=== PATIENT | male | born 1935 | race Caucasian/White ===

== ENCOUNTER → 2016-09-24 | Outpatient (CLI) | payer OTHER ==
[~2016-09-24] MED LIST: AMLODIPINE BES2.5 MG PO; ANTIVERT/2525 M1 PO; ANTIVERT25 MG PO; CARAFATE1 G1 PO; FISH OIL 10001000 MG PO; KEY-E400 IU PO; LOVASTATIN10 MG PO; LOVASTATIN20 MG PO; NORCO 10-325 T1 EACH PO; NORTRIPTYLINE H10 M1 PO; PERCOCET 325 MG1 TA5 PO; SUDAFED 24 HOU240 MG PO; TOPROL XL25 MG PO; VITAMIN D31000 IU PO; VITAMIN D32000 IU PO; ZITHROMAX Z PA250 MG PO; ZYRTEC10 M1 PO; ZYRTEC10 MG PO
== END | disposition home or self-care (01) ==
LOC: US 09:40
DX: Z01.818 Encounter for other preprocedural examination (principal); M79.89 Other specified soft tissue disorders; Z96.642 Presence of left artificial hip joint

== ENCOUNTER → 2017-02-11 | Outpatient (CLI) | payer OTHER | END | disposition home or self-care (01) | LOC: LAB 08:07 → CT 09:00 | PROVIDERS: Radiology Diagnostic Radiology | DX: I67.82 Cerebral ischemia (principal); R41.0 Disorientation, unspecified ==

== ENCOUNTER → 2017-10-28 | Outpatient (CLI) | payer MEDICARE | END | disposition home or self-care (01) | LOC: US 15:23 | DX: R60.0 Localized edema (principal) ==

== ENCOUNTER 2018-11-04 00:39 | Inpatient (IN) | payer MEDICARE ==
[2018-11-04] VITALS (7 sets, daily range): BP systolic 114–145; BP diastolic 68–93
[~2018-11-04] VITALS: Ht 187.9 cm; Wt 105.0 kg
--- NOTE | ~2018-11-04 | EKG ---
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
--- NOTE | ~2018-11-04 | EKG ---
[place], [place] ELECTROCARDIOGRAM REPORT NAME: LYNDA ENGLAND UNIT #: [id number] ROOM: 507 DOCTOR: TAWANA DRAFT REPORT BIRTHDATE: [birth year] [facility] Test Date: 2018-11-04 Test Time: 06:51:19 Pat Name: LYNDA ENGLAND Department: Room: 507 Gender: M [place]: : 1935 Requested By: MIGUEL ANGEL PADILLA Order Number: [id number] Reading MD: Tin Hanna MD Measurements Intervals [place] Rate: 67 P: -8 WV: 255 QRS: -22 QRSD: 92 T: 17 QT: 390 QTc: 412 Interpretive Statements Sinus rhythm Prolonged [place] interval Abnormal R-wave progression, early transition Inferior infarct, old Electronically Signed On 11-04-2018 15:05:56 PDT by Tin Hanna MD CM:EKGRPT:ELECTROCARDIOGRAM REPORT [id number] MIGUEL ANGEL VILLAREAL DRAFT REPORT MIGUEL ANGEL PADILLA DO
--- NOTE | ~2018-11-04 | DS ---
[place], [place] DISCHARGE SUMMARY NAME: LYNDA ENGLAND [facility] #: [id number] UNIT #: [id number] ROOM: 505 DOCTOR: ADRIÁN DIAZ MD BIRTHDATE: [birth year] DOS: 11/06/2018 The patient is very well known to us. He was admitted to the hospital on 11/04/2018, discharged on 11/06/2018. DIAGNOSES: 1. Severe aortic stenosis. 2. Chest pain from aortic stenosis. 3. Benign hypertension. 4. History of hip fracture, status post fall with open reduction and internal fixation. HOSPITAL COURSE: The patient is 83 years old, comes in with complaints of chest pain. The patient states that the pain also comes on when he cuts his lawn. He denies having any fever, chills, any abdominal pain, nausea, emesis, any shortness of breath. He was admitted with diagnosis of acute precordial chest pain. Cardiology consultation was obtained. Rule out VT protocol was ordered. Echocardiogram was done. Echocardiogram showed severe aortic stenosis. Dr. Hanna felt that the patient would benefit from cardiac catheterization to see if he has underlying coronary artery disease and also the extent of aortic stenosis. The patient was transferred to [facility] for further workup. ADRIÁN DIAZ MD CM:DISCHARG [id number] ADRIÁN DIAZ MD 11/29/18 0920 interface
--- NOTE | ~2018-11-04 | WRIGHTHP ---
[place], [place] PATIENT HISTORY AND PHYSICAL EXAM NAME: LYNDA ENGLAND [facility] #: [id number] UNIT #: [id number] ROOM: 507 DOCTOR: ADRIÁN DIAZ MD BIRTHDATE: [birth year] DOS: 11/04/2018 HISTORY OF PRESENT ILLNESS: The patient is 83 years old, very well known to us, who comes in with chest pain. The patient states that he ate a lot of greasy fries yesterday, had some diarrhea, so went to bed early. He was woken up in the middle of the night with severe chest pain, radiating to the left shoulder. As soon as he sat up, the pain resolved. He denies having any chest pains after that. He decided to come into the Emergency Room because it scared him. Denies having any shortness of breath, any palpitations, any fever or chills. He has noticed some chest tightness whenever he cuts his lawn recently. It always goes away when he rests. PAST MEDICAL HISTORY: Significant for; 1. Mild aortic stenosis. 2. History of cholecystectomy. 3. Benign hypertension. 4. History of fall with fracture of the hip and status post ORIF. 5. Hiatal hernia. MEDICATIONS: That he is currently on are vitamin D 1000 units daily, lovastatin 20 daily, metoprolol 25 daily, vitamin E 400 units daily. SOCIAL HISTORY: Nonsmoker, does not use any alcohol. Lives at home. 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 PHYSICAL EXAMINATION: GENERAL: He is awake and alert and oriented. VITAL SIGNS: Blood pressure is 145/88, pulse of 80, respirations 20, temperature 97.5. LUNGS: Diminished breath sounds. No wheezes, rales or rhonchi heard. HEART: Regular. ABDOMEN: Obese, soft, nontender. EXTREMITIES: Without any edema. ASSESSMENT AND PLAN: 1. Acute precordial pain. The patient has been admitted, rule out myocardial infarction protocol was done. Consultation with Cardiology obtained. Echocardiogram ordered. 2. Hyponatremia and hypochloremia, possibly from volume contraction. Advised to increase the fluids. 3. Benign hypertension, controlled. 4. Chest pain could be atypical from gastroesophageal reflux disease, especially with his intake of a lot of greasy fries yesterday, but the patient is not having any symptoms, so I have not placed him on any proton pump inhibitors. 5. Recent complaints of exertional chest pain, may require a stress test. His last one was 2 years ago. He does have mild to moderate aortic stenosis on his last echocardiogram as an outpatient. [place], [place] PATIENT HISTORY AND PHYSICAL EXAM NAME: LYNDA ENGLAND UNIT #: [id number] ROOM: [facility] DOCTOR: ADRIÁN DIAZ MD BIRTHDATE: [birth year] ADRIÁN DIAZ MD CM:HISPHYS:PATIENT HISTORY AND PHYSICAL EXAMINATION ADRIÁN DIAZ MD 11/04/18 0859 interface
--- NOTE | ~2018-11-04 | PR ---
[place], [place] PROGRESS NOTE NAME: LYNDA ENGLAND [facility] #: [id number] UNIT #: [id number] ROOM: 505 DOCTOR: ADRIÁN DIAZ MD BIRTHDATE: [birth year] DOS: SUBJECTIVE: The patient is doing well without any complaints. OBJECTIVE: VITAL SIGNS: Graphic trend shows a pressure of 116/74, pulse of 86, respirations 18, temperature 97.9. LUNGS: Clear. HEART: Regular with a loud systolic murmur heard in the second space. ABDOMEN: Obese, soft. EXTREMITIES: Without any edema. ASSESSMENT AND PLAN: 1. Chest pain, ruled out for myocardial infarction. 2. Aortic stenosis. Discussed with Dr. Hanna this morning. The patient's echo this morning shows severe aortic stenosis and he would benefit from a cardiac catheterization, and arrangements for transfer are being made. ADRIÁN DIAZ MD CM:PNTRANS [id number] ADRIÁN DIAZ MD 11/06/18 1319 interface
--- NOTE | ~2018-11-04 | EKG ---
[place], [place] ELECTROCARDIOGRAM REPORT NAME: LYNDA ENGLAND UNIT #: [id number] ROOM: 507 DOCTOR: TAWANA DRAFT REPORT BIRTHDATE: [birth year] [facility] Test Date: 2018-11-04 Test Time: 00:46:05 Pat Name: LYNDA ENGLAND Department: Room: 507 Gender: M Mat Gauger: : 1935 Requested By: MIGUEL ANGEL PADILLA Order Number: [id number] Reading MD: Tin Hanna MD Measurements Intervals [place] Rate: 90 P: 34 RI: 233 QRS: -12 QRSD: 104 T: 41 QT: 354 QTc: 433 Interpretive Statements Sinus rhythm Prolonged [place] interval Abnormal R-wave progression, early transition Electronically Signed On 11-04-2018 15:05:30 PDT by Tin Hanna MD CM:EKGRPT:ELECTROCARDIOGRAM REPORT [id number] MIGUEL ANGEL VILLAREAL DRAFT REPORT MIGUEL ANGEL PADILLA DO
--- NOTE | ~2018-11-04 | PR ---
[place], [place] PROGRESS NOTE [id number] UNIT #: [id number] ROOM: 505 DOCTOR: ADRIÁN DIAZ MD BIRTHDATE: [birth year] DOS: SUBJECTIVE: The patient states that he feels good and he is not having any chest pains. Appreciate Dr. Valdez's input. OBJECTIVE: VITAL SIGNS: Pressure is 129/55, pulse of 66, respirations 20, temperature 97.5. LUNGS: Clear. HEART: Regular. ABDOMEN: Obese, soft. EXTREMITIES: Without any edema. EKG showed sinus rhythm, nonspecific ST-T wave changes. Four sets of troponins have all come back negative. ASSESSMENT AND PLAN: 1. Precordial chest pain. Awaiting further workup ruled out for myocardial infarction. 2. Aortic stenosis, mild to moderate. Echocardiogram ordered for tomorrow. Dr. Valdez is following deciding on whether he would benefit from catheterization versus stress test. ADRIÁN DIAZ MD CM:PNTRANS [id number] ADRIÁN DIAZ MD 11/06/18 0032 interface
[2018-11-04 01:20] LABS: BASO # 0.1 10*3/uL (0.0-0.1); BASO % 1.4 % (0.0-1.0); EOS # 0.8 10*3/uL (0.0-0.4); EOS % 9.4 % (1.0-4.0); HEMATOCRIT 42.9 % (42.0-52.0); HEMOGLOBIN 14.2 g/dl (14.0-18.0); LYMPH # 2.1 10*3/uL (1.3-4.4); LYMPH % 24.4 % (27.0-41.0); MEAN CELL VOLUME 91.3 fl (80.0-94.0); MEAN CORPUSCULAR HGB 30.2 pg (27.0-31.0); MEAN CORPUSCULAR HGB CONC 33.1 g/dl (33.0-37.0); MEAN PLATELET VOLUME 10.6 fl (9.6-12.3); MONO # 0.8 10*3/uL (0.1-1.0); MONO % 9.8 % (3.0-9.0); NEUT # 4.7 10*3/uL (2.3-7.9); NEUT % 54.5 % (47.0-73.0); PLATELET COUNT AUTOMATED 245 10*3/uL (130-400); RED CELL DISTRI WIDTH 12.6 % (0-14.5); WHITE BLOOD COUNT 8.6 10*3/uL (4.8-10.8)
[2018-11-04 01:39] LABS: ACT PARTIAL THROMBO TIME 26.4 SECONDS (20.0-32.1); INTERNATIONAL NORM RATIO 0.9 (2.0-3.5)
[2018-11-04 01:40] LABS: ALBUMIN 3.9 gm/dl (3.1-4.5); ALKALINE PHOSPHATASE 107 U/L (45-117); BUN 24 mg/dl (7-24); CHLORIDE 112 mmol/L (98-107); CREATININE 0.88 mg/dL (0.70-1.30); POTASSIUM 4.1 mmol/L (3.5-5.1); SGOT/AST 15 IU/L (3-35); SGPT/ALT 25 U/L (12-78); SODIUM 146 mmol/L (136-145); TOTAL PROTEIN 7.4 gm/dL (6.4-8.2)
[2018-11-04 01:43] LABS: TROPONIN I < 0.015 ng/ml (<0.045)
--- NOTE | 2018-11-04 02:37 | NUR ---
PT AND REQUEST PASSWORD OF "DONALD".
--- NOTE | 2018-11-04 03:20 | NUR ---
A 83, admitted to , under the services of ADRIÁN Clifton MD with a diagnosis of ANGINA. Chief complaint is CHEST PAIN. Patient arrived via stretcher from ER. Monitor applied. Initial assessment completed. Vital signs taken and recorded. ADRIÁN CLIFTON MD notified of admission to the unit. Orders received. See assessment for past medical history, medications and allergies. Patient and/or family oriented to unit. [facility] visitation policy reviewed. Clothing/patient valuable form completed. PAM PATEL
--- NOTE | 2018-11-04 06:23 | NUR ---
SPOKE WITH COSME AT [facility] ANSWERING SERVICE REGARDING CONSULT FOR DR. IBARRA
[2018-11-05] VITALS: BP 129/55
[2018-11-05 08:00] VITALS: BP 126/78
[2018-11-05] MEDS ORDERED: AMLODIPINE BES2.5 MG PO (09:35)
[2018-11-05] MEDS ORDERED: FLOMAX0.4 MG PO (09:36)
[2018-11-05] MEDS ORDERED: ASPIRIN ADULT L81 M1 PO (09:36)
[2018-11-05] MEDS ORDERED: SENTRY SENIOR1 EAC2 PO (09:36)
[2018-11-05] MEDS ORDERED: B12,B-12,B 12500 MC1 PO (10:46)
[2018-11-05 12:00] VITALS: BP 128/80
[2018-11-05 16:00] VITALS: BP 147/87
[2018-11-05 20:00] VITALS: BP 126/79
[2018-11-06] VITALS: BP 116/74
--- NOTE | 2018-11-06 08:00 | NUR ---
PT SEEN AT THIS TIME. PT IS AWAKE AND ALERT, SITTING IN BED. NO S/S OF DISTRES OR SOB AT THIS TIME. BED IN LOWEST LOCKED POSITION AND CALL LIGHT WITHIN REACH. WILL CONTINUE TO MONITOR.
--- NOTE | 2018-11-06 09:00 | NUR ---
Spray Painter in to talk to patient. Patient states lives at home with his . There are 10 steps in the home. Physician: Dr. Altagracia Escobar Pharmacy: [facility] Home health services: none Patient's level of ADLs: INDEPENDENT Patient has working utilities: yes DME: none Follow-up physician's appointment after d/c: he prefers to make his own follow up appt after discharge Does patient want to access PORTAL?: no Discharge plan discussed with patient and family who are at the bedside. Patient is SAMISH. He lives at home with his . He is independent in his ADLs and ambulation. Discussed home health care services and he denies any home needs. He states he had his echo done and is waiting to hear back from the doctor to see if they are going to transfer him to [facility]. DEANDRE ARRIOLA
[2018-11-06 12:00] VITALS: BP 105/70
[2018-11-06 16:00] VITALS: BP 103/64
--- NOTE | 2018-11-06 18:07 | NUR ---
Discharge instructions reviewed with patient/family. Patient receptive and verbalizes understanding. Follow-up care arranged. Written instructions given to patient/family. PT LEFT FLOOR WITH MOOSE. JOSE E HARDY
== END 2018-11-06 18:07 | disposition short-term general hospital (02) | DRG 392 ==
LOC: ED 00:39 → EDHOLD 02:28 → 5E 02:28
PROVIDERS: Student in an Organized Health Care Education/Training Program; ADMIT Internal Medicine
DX: K21.9 Gastro-esophageal reflux disease without esophagitis (principal); E87.1 Hypo-osmolality and hyponatremia; R07.2 Precordial pain; E87.8 Other disorders of electrolyte and fluid balance, not elsewhere classified; E78.5 Hyperlipidemia, unspecified; I10 Essential (primary) hypertension; I35.0 Nonrheumatic aortic (valve) stenosis; Z90.49 Acquired absence of other specified parts of digestive tract; Z91.81 History of falling; Z79.899 Other long term (current) drug therapy

== ENCOUNTER → 2020-01-04 | Outpatient (CLI) | payer OTHER ==
[~2020-01-04] MED LIST changes: +ASPIRIN ADULT L81 M1 PO; +B12,B-12,B 12500 MC1 PO; +FLOMAX0.4 MG PO; +SENTRY SENIOR1 EAC2 PO
[2020-01-04 09:15] LABS: BASO # 0.1 10*3/uL (0.0-0.1); BASO % 1.4 % (0.0-1.0); EOS # 0.9 10*3/uL (0.0-0.4); EOS % 10.7 % (1.0-4.0); HEMATOCRIT 48.1 % (42.0-52.0); LYMPH # 1.6 10*3/uL (1.3-4.4); LYMPH % 19.2 % (27.0-41.0); MEAN CELL VOLUME 86.5 fl (80.0-94.0); MEAN CORPUSCULAR HGB 27.9 pg (27.0-31.0); MEAN CORPUSCULAR HGB CONC 32.2 g/dl (33.0-37.0); MEAN PLATELET VOLUME 10.1 fl (9.6-12.3); MONO # 0.7 10*3/uL (0.1-1.0); NEUT # 5.1 10*3/uL (2.3-7.9); NEUT % 60.3 % (47.0-73.0); PLATELET COUNT AUTOMATED 181 10*3/uL (130-400); RED BLOOD COUNT 5.56 10*6/uL (4.50-5.90); RED CELL DISTRI WIDTH 12.9 % (0-14.5); WHITE BLOOD COUNT 8.5 10*3/uL (4.8-10.8)
[2020-01-04 09:45] LABS: ALBUMIN 4.1 gm/dl (3.1-4.5); ALKALINE PHOSPHATASE 109 U/L (45-117); BUN 17 mg/dl (7-24); CHLORIDE 107 mmol/L (98-107); CHOLESTEROL 184 mg/dL (<200); CREATININE 1.04 mg/dL (0.70-1.30); FREE T4 0.96 ng/dl (0.76-1.46); HDL CHOLESTEROL 45 mg/dl (40-60); LDL CHOLESTEROL 102 mg/dL (9-159); POTASSIUM 4.2 mmol/L (3.5-5.1); SGOT/AST 17 IU/L (3-35); SGPT/ALT 24 U/L (12-78); SODIUM 140 mmol/L (136-145); TOTAL PROTEIN 8.3 gm/dL (6.4-8.2); TRIGLYCERIDES 184 mg/dl (<150); VLDL CHOLESTEROL 37 mg/dL (6-40)
[2020-01-04 10:50] LABS: VITAMIN D, 25-HYDROXY 45.9 ng/mL (30-100)
== END | disposition home or self-care (01) ==
LOC: LAB 08:49 → US 13:30
PROVIDERS: Internal Medicine
DX: Z12.5 Encounter for screening for malignant neoplasm of prostate (principal); I10 Essential (primary) hypertension; J01.00 Acute maxillary sinusitis, unspecified; I35.0 Nonrheumatic aortic (valve) stenosis; R79.82 Elevated C-reactive protein (CRP); R74.8 Abnormal levels of other serum enzymes; R79.89 Other specified abnormal findings of blood chemistry; R53.81 Other malaise; E55.9 Vitamin D deficiency, unspecified; R42 Dizziness and giddiness

== ENCOUNTER 2020-02-18 11:32 | Observation (INO) | payer OTHER ==
[~2020-02-18] VITALS: Ht 187.9 cm; Wt 99.8 kg
[2020-02-18 11:49] VITALS: BP 127/73
[2020-02-18 12:22] LABS: BASO % 0.6 % (0.0-1.0); EOS # 0.3 10*3/uL (0.0-0.4); EOS % 6.8 % (1.0-4.0); HEMATOCRIT 45.1 % (42.0-52.0); LYMPH % 21.2 % (27.0-41.0); MEAN CELL VOLUME 84.3 fl (80.0-94.0); MEAN CORPUSCULAR HGB 26.9 pg (27.0-31.0); MEAN CORPUSCULAR HGB CONC 31.9 g/dl (33.0-37.0); MEAN PLATELET VOLUME 11.1 fl (9.6-12.3); MONO # 0.7 10*3/uL (0.1-1.0); MONO % 13.6 % (3.0-9.0); NEUT # 2.8 10*3/uL (2.3-7.9); NEUT % 57.4 % (47.0-73.0); PLATELET COUNT AUTOMATED 226 10*3/uL (130-400); RED BLOOD COUNT 5.35 10*6/uL (4.50-5.90); RED CELL DISTRI WIDTH 12.6 % (0-14.5); WHITE BLOOD COUNT 4.9 10*3/uL (4.8-10.8)
[2020-02-18 12:30] LABS: ACT PARTIAL THROMBO TIME 30.2 SECONDS (20.0-32.1)
[2020-02-18 12:38] LABS: ALBUMIN 3.6 gm/dl (3.1-4.5); ALKALINE PHOSPHATASE 123 U/L (45-117); BUN 18 mg/dl (7-24); CHLORIDE 107 mmol/L (98-107); CREATININE 1.03 mg/dL (0.70-1.30); LIPASE 142 U/L (73-393); POTASSIUM 3.9 mmol/L (3.5-5.1); SGOT/AST 21 IU/L (3-35); SGPT/ALT 28 U/L (12-78); SODIUM 139 mmol/L (136-145); TOTAL PROTEIN 7.8 gm/dL (6.4-8.2)
[2020-02-18 12:39] LABS: TROPONIN I < 0.015 ng/ml (<0.045)
[2020-02-18 13:26] VITALS: BP 139/78
[2020-02-18 15:03] LABS: ABG BASE EXCESS 1.3 mmol/L (-2.0-2.0); ARTERIAL BLOOD GAS PH 7.447 (7.35-7.45)
[2020-02-18 16:00] VITALS: BP 143/62
[2020-02-18 16:21] VITALS: BP 143/62
--- NOTE | 2020-02-18 16:21 | NUR ---
A 84, admitted to [facility], under the services of TAMEKA Smiley DO with a diagnosis of COVID-19, WEAKNESS. Chief complaint is WEAKNESS. Patient arrived via ambulatory from ER. Monitor applied. Initial assessment completed. Vital signs taken and recorded. TAMEKA SMILEY DO notified of admission to the unit. Orders received. See assessment for past medical history, medications and allergies. Patient and/or family oriented to unit. [facility] visitation policy reviewed. Clothing/patient valuable form completed. ANNE MARIE DELGADO
--- NOTE | 2020-02-18 17:04 | NUR ---
IN TO SEE PT.
[2020-02-18] MEDS ORDERED: LATANOPROST2.5 ML OP (17:47)
[2020-02-18] MEDS ORDERED: DONEPEZIL HYDROC5 MG PO (17:48)
[2020-02-18] MEDS ORDERED: ESOMEPRAZOLE MA40 M1 PO (17:52)
[2020-02-18 20:00] VITALS: BP 130/70
[2020-02-19] VITALS: BP 112/55
[2020-02-19 06:56] LABS: BASO # 0.1 10*3/uL (0.0-0.1); BASO % 0.9 % (0.0-1.0); EOS # 0.2 10*3/uL (0.0-0.4); EOS % 4.5 % (1.0-4.0); HEMATOCRIT 47.4 % (42.0-52.0); MEAN CELL VOLUME 85.3 fl (80.0-94.0); MEAN CORPUSCULAR HGB 26.8 pg (27.0-31.0); MEAN CORPUSCULAR HGB CONC 31.4 g/dl (33.0-37.0); MEAN PLATELET VOLUME 10.7 fl (9.6-12.3); MONO # 0.6 10*3/uL (0.1-1.0); NEUT # 3.4 10*3/uL (2.3-7.9); NEUT % 64.2 % (47.0-73.0); PLATELET COUNT AUTOMATED 246 10*3/uL (130-400); RED BLOOD COUNT 5.56 10*6/uL (4.50-5.90); RED CELL DISTRI WIDTH 12.7 % (0-14.5); WHITE BLOOD COUNT 5.3 10*3/uL (4.8-10.8)
[2020-02-19 07:18] LABS: ACT PARTIAL THROMBO TIME 29.2 SECONDS (20.0-32.1)
[2020-02-19 07:26] LABS: CHLORIDE 106 mmol/L (98-107); SODIUM 139 mmol/L (136-145)
[2020-02-19 07:39] LABS: ALBUMIN 3.5 gm/dl (3.1-4.5); ALKALINE PHOSPHATASE 127 U/L (45-117); BUN 14 mg/dl (7-24); CHOLESTEROL 136 mg/dL (<200); CREATININE 0.92 mg/dL (0.70-1.30); HDL CHOLESTEROL 32 mg/dl (40-60); LDL CHOLESTEROL 73 mg/dL (9-159); SGOT/AST 21 IU/L (3-35); SGPT/ALT 28 U/L (12-78); TOTAL PROTEIN 7.9 gm/dL (6.4-8.2); TRIGLYCERIDES 153 mg/dl (<150); VLDL CHOLESTEROL 31 mg/dL (6-40)
[2020-02-19 08:00] VITALS: BP 120/88
[2020-02-19 08:06] LABS: VITAMIN D, 25-HYDROXY 46.6 ng/mL (30-100)
--- NOTE | 2020-02-19 08:30 | NUR ---
Adjudication Specialist in to talk to patient. Patient states lives at home with his daughters as his is currently in a hospital in [place]. There are 10 steps in the home. Physician: Dr. Altagracia Escobar Pharmacy: [facility] [employer] [place] health services: none Patient's level of ADLs: INDEPENDENT Patient has working utilities: yes DME: cane, walker (doesn't use) Follow-up physician's appointment after d/c: will be made by the hospitalist nurse director upon discharge Does patient want to access PORTAL?: no Discharge plan discussed with patient. He lives at home with his daughters. He states his is currently at a hospital in [place] with NICOLE. He is independent in his ADLs and ambulation. 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 Discussed short term rehab and home health care services and he declines. CM will continue to follow for any discharge. When medically stable he will be discharged ot home. He states one of his children will provide transportation on discharge. DEANDRE ARRIOLA
--- NOTE | 2020-02-19 09:30 | NUR ---
SPOKE WITH BOTH DAUGHTER AND GRANDDAUGHTER. PASSCODE SET UP, PATIENT OK WITH LETTING GRANDDAUGHTER PICK PASSCODE.
[2020-02-19] MEDS ORDERED: MELOXICAM7.5 MG PO (09:46)
[2020-02-19] MEDS ORDERED: LOPRESSOR25 MG PO (09:46)
--- NOTE | 2020-02-19 13:30 | NUR ---
Spoke to daughter, Landy, regarding discharge planning. Informed daughter BUNNY was informed she was not ready for her dad to be discharged. Asked if there was something going on at home that he would not be able to be discharged to home today. She said there is no one home to take care of him. Informed patient was not willing to go to a SNF. She states "I know he just wants to go home." She states his is in a [facility] hospital with COVID. Asked how long his has been in [place] and she states 3 days. Asked who has been taking care of her dad for the last 3 days. She states she hasn't been feeling well and she is in self quarantine for 14 days along with the rest of her family but she would be helping him. Asked about home health care services and she declines. Informed her that her dad also declined home health care services. She wants to speak to a physician to see what is going on with her dad medically. Informed Dr. Jimenez. She states her brother will be down shortly to pick him up and bring him home. She states her dad hasn't worked in a couple of years due to having open heart last winter and his hip replaced 2 years ago. Nurse notified.
--- NOTE | 2020-02-19 13:55 | NUR ---
Discharge instructions reviewed with patient/family. Patient receptive and verbalizes understanding. Follow-up care arranged. Written instructions given to patient/family. HEPLOCK DISCONTINUED. SHOE MAKER REMOVED. PATIENT AWARE THAT HE NEEDS REPEAT COVID SWAB IN 2 WEEKS AND TO SELF QUARANTINE. PRESCRIPTION GIVEN. TAKEN OFF FLOOR VIA WHEELCHAIR AND PICKED UP BY SON. ROHIT WILKINSON
== END 2020-02-19 13:55 | disposition home or self-care (01) ==
LOC: ED 11:32 → EDHOLD 14:12 → 4NE 14:12 → EDHOLD 14:14 → 4NE 16:02
PROVIDERS: Emergency Medicine; Student in an Organized Health Care Education/Training Program; ADMIT Internal Medicine; ATTEND Internal Medicine
DX: U07.1 COVID-19 (principal); E44.0 Moderate protein-calorie malnutrition; E78.5 Hyperlipidemia, unspecified; K21.9 Gastro-esophageal reflux disease without esophagitis; R09.02 Hypoxemia; R53.1 Weakness; R74.8 Abnormal levels of other serum enzymes; I35.0 Nonrheumatic aortic (valve) stenosis; I10 Essential (primary) hypertension; E55.9 Vitamin D deficiency, unspecified; N40.0 Benign prostatic hyperplasia without lower urinary tract symptoms

== ENCOUNTER → 2021-09-22 | Outpatient (CLI) | payer OTHER ==
[~2021-09-22] MED LIST changes: +DONEPEZIL HYDROC5 MG PO; +ESOMEPRAZOLE MA40 M1 PO; +LATANOPROST2.5 ML OP; +LOPRESSOR25 MG PO; +MELOXICAM7.5 MG PO
== END | disposition home or self-care (01) ==
LOC: RAD 11:05
PROVIDERS: ATTEND Nurse Practitioner Family
DX: S82.115A Nondisplaced fracture of left tibial spine, initial encounter for closed fracture (principal); X58.XXXA Exposure to other specified factors, initial encounter; Y93.89 Activity, other specified; Y92.89 Other specified places as the place of occurrence of the external cause; Y99.8 Other external cause status

== ENCOUNTER 2023-11-21 18:36 | Emergency (ER) | payer OTHER ==
[~2023-11-21] VITALS: Ht 187.9 cm; Wt 98.9 kg
[2023-11-21 19:08] LABS: BASO # 0.1 10*3/uL (0.0-0.1); BASO % 1.3 % (0.0-1.0); EOS # 0.8 10*3/uL (0.0-0.4); HEMATOCRIT 43.6 % (42.0-52.0); LYMPH # 1.6 10*3/uL (1.3-4.4); LYMPH % 17.8 % (27.0-41.0); MEAN CORPUSCULAR HGB 28.6 pg (27.0-31.0); MEAN CORPUSCULAR HGB CONC 32.1 g/dl (33.0-37.0); MEAN PLATELET VOLUME 10.2 fl (9.6-12.3); MONO # 0.6 10*3/uL (0.1-1.0); MONO % 6.3 % (3.0-9.0); NEUT # 5.9 10*3/uL (2.3-7.9); NEUT % 65.3 % (47.0-73.0); PLATELET COUNT AUTOMATED 237 10*3/uL (130-400); RED CELL DISTRI WIDTH 12.7 % (0-14.5); WHITE BLOOD COUNT 9.1 10*3/uL (4.8-10.8)
[2023-11-21 19:23] LABS: BUN 17 mg/dl (9-23); CHLORIDE 105 mmol/L (98-107); POTASSIUM 3.7 mmol/L (3.4-5.1)
[2023-11-21] MEDS ORDERED: SODIUM CHLORIDE 0.9% 1,000 ML IV ONE (20:55)
[2023-11-21] MEDS ORDERED: Ketorolac Tromethamine 15 MG/ML VIAL IV ONE (20:55)
== END 2023-11-21 23:42 | disposition home or self-care (01) ==
LOC: ED 18:36
PROVIDERS: Internal Medicine
DX: T67.5XXA Heat exhaustion, unspecified, initial encounter (principal); R42 Dizziness and giddiness; R51.9 Headache, unspecified; Z79.899 Other long term (current) drug therapy; Z79.82 Long term (current) use of aspirin; Z90.49 Acquired absence of other specified parts of digestive tract; Z98.890 Other specified postprocedural states; X32.XXXA Exposure to sunlight, initial encounter; Y93.89 Activity, other specified; Y92.096 Garden or yard of other non-institutional residence as the place of occurrence of the external cause; Y99.8 Other external cause status

== ENCOUNTER → 2023-12-28 | Outpatient (CLI) | payer OTHER | END | disposition home or self-care (01) | LOC: RAD 12:36 | PROVIDERS: ATTEND Family Medicine | DX: M47.816 Spondylosis without myelopathy or radiculopathy, lumbar region (principal); M25.761 Osteophyte, right knee; M85.88 Other specified disorders of bone density and structure, other site; G95.29 Other cord compression; M25.561 Pain in right knee; M54.50 Low back pain, unspecified ==